=== PATIENT | female | born 1995 | race Caucasian/White ===

== ENCOUNTER 2019-04-07 23:03 | Emergency (ER) | payer MEDICAID ==
[~2019-04-07 23:03] MED LIST: HYDR-3455 PO; KETO10TA PO; LEVO500T2 PO
--- NOTE | 2019-04-07 23:16 | NUR ---
pt reported to registration she was going to [facility]. left from waiting room
[2019-04-07 23:17] LABS: BILIRUBIN,URINE NEGATIVE (NEGATIVE); CLARITY,URINE CLEAR; COLOR,URINE YELLOW; GLUCOSE, URINE (UA) NEGATIVE (NEGATIVE); KETONES,URINE NEGATIVE (NEGATIVE); LEUKOCYTE ESTERASE ,URINE NEGATIVE (NEGATIVE); NITRITE,URINE NEGATIVE (NEGATIVE); PROTEIN,URINE NEGATIVE (NEGATIVE)
--- NOTE | 2019-04-07 23:20 | NUR ---
ppd notified of pt leaving prior to assessment. after suicidial statement.
[2019-04-07 23:29] LABS: BENZODIAZEPINES SCREEN URINE POSITIVE (NEGATIVE); CANNABINOID SCREEN, URINE POSITIVE (NEGATIVE)
[2019-04-07 23:30] LABS: AMPHETAMINE SCREEN, URINE NEGATIVE (NEGATIVE); BARBITURATE SCREEN URINE NEGATIVE (NEGATIVE); COCAINE SCREEN URINE NEGATIVE (NEGATIVE); METHADONE STAT NEGATIVE (NEGATIVE); METHAMPHETAMINE SCREEN URINE S NEGATIVE (NEGATIVE); OPIATE SCREEN URINE NEGATIVE (NEGATIVE); OXYCODONE STAT NEGATIVE (NEGATIVE); PROPOXYPHENE STAT NEGATIVE (NEGATIVE); TRICYCLIC ANTIDEPRESSANTS SCRE POSITIVE (NEGATIVE)
--- NOTE | 2019-04-07 23:30 | NUR ---
ppd officer barrett here, informed of pt elopement from waiting room.
[2019-04-07 23:31] LABS: BACTERIA,URINE MODERATE /HPF; WBC,URINE 0-2 /HPF
== END 2019-04-07 23:17 | disposition left against medical advice (07) ==
LOC: EDUNIT# 23:03 → ER 23:06
DX: R45.851 Suicidal ideations (principal)
CPT/HCPCS: 80306; 81000; 99282

== ENCOUNTER 2019-04-23 20:51 | Emergency (ER) | payer MEDICAID ==
[~2019-04-23] VITALS: Ht 165.1 cm; Wt 95.4 kg
--- NOTE | 2019-04-23 21:26 | Diagnostic Imaging Report ---
INDICATION: Rolled right ankle a couple of weeks ago without improvement. FINDINGS: 3 views of the right ankle demonstrate soft tissue swelling. No joint effusion is present. There is a well-corticated osteophyte or old avulsion fracture off of the lateral malleolus. IMPRESSION: There is an osteophyte or old avulsion fracture off of the lateral malleolus. Soft tissue swelling is present. Dictated by: Dictated on workstation # [id number]
--- NOTE | 2019-04-23 21:37 | ED Lower Extremity ---
General Chief Complaint: Lower Extremity Stated Complaint: POSS RIGHT ANKLE INJ/FELL Nursing Triage Note: PT. REPORTED SHE HAD HURT HER ANKLE A COUPLE OF WEEKS AGO BUT FELL ON SOME STAIRS AND TWISTED IT AGAIN. RIGHT ANKLE IS SWOLLEN. Nursing Sepsis Screen: No Definite Risk Source: patient History of Present Illness Date Seen by Provider: Apr 23, 2019 Time Seen by Provider: 21:36 Initial Comments 24-year-old female presenting with complaints of right ankle pain and swelling. She states that she had injured her ankle a few weeks ago but it got better. Yesterday she had twisted her ankle and fell on some stairs. Then today when she was work it just kept getting more painful and swollen. She works the register at a [employer] She was unable to finish her shift and came to the emergency department to be evaluated. She denies any numbness or tingling in her foot. She did not hit her head when she fell and injured it yesterday. She is still able to bear some weight on her foot but has to limp Allergies and Home Medications Allergies Coded Allergies: meperidine (Verified Allergy, Severe, RASH/BREATHING, 12/31/14) Home Medications Hydrocodone/Acetaminophen 1 Each Tablet, 1-2 EACH PO PRN Prescribed by: YOHANA RIGGS on 01/01/15 1038 Hydrocodone/Acetaminophen 1 Each Tablet, 1 TAB PO Q8H PRN for PAIN-SEVERE (8-10) Prescribed by: WILNER PEARL on 04/23/19 2220 Ibuprofen 800 Mg Tablet, 800 MG PO Q8H PRN for PAIN Prescribed by: WILNER PEARL on 04/23/19 2219 Ketorolac Tromethamine 10 Mg Tablet, 10 MG PO Q6H Prescribed by: WILFRED ARMSTRONG on 01/06/15 031 Levofloxacin 500 Mg Tablet, 500 MG PO DAILY Prescribed by: WILFRED ARMSTRONG on 01/06/15311 Patient Home Medication List Home Medication List Reviewed: Yes Review of Systems Constitutional: No chills, No fever EENTM: no symptoms reported Respiratory: no symptoms reported Cardiovascular: no symptoms reported Gastrointestinal: no symptoms reported Genitourinary: no symptoms reported Musculoskeletal: see HPI Skin: see HPI Psychiatric/Neurological: See HPI Past Qvcqdpm-Rthcur-Exrpyf Hx Past Med/Social Hx: Reviewed Nursing Past Med/Soc Hx Patient Social History Recent Foreign Travel: No Contact w/Someone Who Travel: No Recent Infectious Disease Expo: No Recent Hopitalizations: No Physical Abuse: No Sexual Abuse: No Mistreated: No Fear: No Seasonal Allergies Seasonal Allergies: No Past Medical History Surgeries: Yes (METAL PLATE AND SCREWS IN R ARM AGE 7; HARDWARE REMOVAL AGE 15) Gallbladder, Orthopedic Respiratory: No Cardiac: No Neurological: No Reproductive Disorders: No Female Reproductive Disorders: Denies Sexually Transmitted Disease: No HIV/AIDS: No Gastrointestinal: Yes Gastroesophageal Reflux, Gall Bladder Disease Musculoskeletal: Yes Fractures Endocrine: No Loss of Vision: Denies Hearing Impairment: Denies Cancer: No Psychosocial: No Integumentary: No Blood Disorders: No Adverse Reaction/Blood Tranf: No Physical Exam Vital Signs Vital Signs - First Documented 04/23/19 04/23/19 21:04 22:21 Temp 36.1 Pulse 87 Resp 20 B/P (MAP) 132/72 (92) Pulse Ox 100 O2 Delivery Room Air Capillary Refill : Less Than 3 Seconds Height, Weight, BMI Height: 5'7.00" Weight: 248lbs. oz. 112.205510ck; 34.00 BMI Method: General Appearance: WD/WN, mild distress HEENT: PERRL/EOMI, pharynx normal Neck: non-tender, full range of motion, supple, normal inspection Cardiovascular: normal peripheral pulses, regular rate, rhythm Respiratory: chest non-tender, lungs clear, normal breath sounds Ankles: left ankle non-tender, left ankle normal inspection, left ankle normal range of motion, left ankle no evidence of injury; right ankle limited range of motion (due to pain), right ankle pain, right ankle soft tissue tenderness, right ankle swelling Feet: right foot pain, right foot soft tissue tenderness, right foot swelling Neurologic/Tendon: normal sensation, normal motor functions, normal tendon functions Neurologic/Psychiatric: trimmer machine II-XII nml as tested, no motor/sensory deficits, alert, normal mood/affect, oriented x 3 Skin: normal color, warm/dry Progress/Results/Core Measures Results/Orders My Orders Orders - WILNER PEARL MD Ankle 3 View Right (04/23/19 20:56) Ice: Apply To Affected Area (04/23/19 21:10) Rx-Hydrocodone/Apap 5-325 Mg (Rx-Vicodin (04/23/19 22:15) Crutches (04/23/19 22:09) Ed Ortho/Other Supplies Order (04/23/19 22:09) Vital Signs/I&O 04/23/19 04/23/19 21:04 22:21 Temp 36.1 36.4 Pulse 87 88 Resp 20 20 B/P (MAP) 132/72 (92) 130/68 Pulse Ox 100 O2 Delivery Room Air Room Air Blood Pressure Mean: 92 Progress Progress Note : Progress Note X-rays did not demonstrate any acute fracture or dislocation. She has some soft tissue swelling. There is a well-corticated Sargent old avulsion fracture of the lateral malleolus on her fibula Will treat with a walking boot and crutches. Counseled to bear weight as tolerated. Ice and elevate for pain and swelling. Ibuprofen for pain and swelling. Hydrocodone for severe pain. Counseled to check back with Dr. Persaud or Bipin Kay. Diagnostic Imaging Diagonstic Imaging: Xray Plain Films/CT/US/NM/MRI: ankle Comments NAME: TEMO ALMAZAN [facility] REC#: [id number] PT STATUS: REG ER : 1995 PHYSICIAN: WILNER PEARL MD ADMIT DATE: 04/23/19/ER FS Draft Date of Exam:04/23/19 ANKLE 3 VIEW RIGHT INDICATION: Rolled right ankle a couple of weeks ago without improvement. FINDINGS: 3 views of the right ankle demonstrate soft tissue swelling. No joint effusion is present. There is a well-corticated osteophyte or old avulsion fracture off of the lateral malleolus. IMPRESSION: There is an osteophyte or old avulsion fracture off of the lateral malleolus. Soft tissue swelling is present. Dictated on workstation # [id number] Dict: 04/23/192112 Trans: 04/23/192124 HARRY [id number] Interpreted by: ROSALIA DINERO MD Electronically signed by: Departure Impression Primary Impression: Right ankle sprain Qualified Codes: S93.401A - Sprain of unspecified ligament of right ankle, initial encounter Additional Impression: Acute right ankle pain Disposition: 01 HOME, SELF-CARE Condition: Stable Departure-Patient Inst. Decision time for Depature: 22:13 Referrals: NO,LOCAL PHYSICIAN (PCP) Primary Care Physician SELF,TIFFANY MD Patient Instructions: Ankle Sprain (DC), How to Use Crutches Add. Discharge Instructions: Wear the boot for support and to let your ankle rest and heal. Weight bearing as you tolerate with the boot and using crutches Check back with Dr. Persaud or with Bipin Kay in clinic for continued pain or if not improving in the next 5-7 days. Bipin Kay could be reached for making an appointment by calling [phone]. Try to elevate your ankle every few hours to help with pain and swelling. May continue to use ice for pain and swelling. Ibuprofen 800 mg every 8 hours as needed for pain and swelling All discharge instructions reviewed with patient and/or family. Voiced understanding. Scripts Hydrocodone/Acetaminophen (Hydrocodone/Acetaminophen 5 MG/325 MG TAB) 1 Each Tablet 1 TAB PO Q8H PRN for PAIN-SEVERE (8-10) MDD 10 TABS for 2 Days, #6 TAB 0 Refills Prov: WILNER PEARL MD 04/23/19 Ibuprofen (Ibuprofen) 800 Mg Tablet 800 MG PO Q8H PRN for PAIN for 10 Days, #30 TAB 0 Refills Prov: WILNER PEARL MD 04/23/19 Work/School Note: Work Release Form Date Seen in the Emergency Department: Apr 23, 2019 Return to Work: Apr 24, 2019 Other Restrictions Listed Below: Use boot and crutches for next week. Elevate R leg for 15 min every 3 hrs WILNER PEARL MD Apr 23, 2019 21:37
[2019-04-23] MEDS ORDERED: RX-HYDROCODONE/APAP 5/325 MG #4 TAB PK PO PRN (22:15)
[2019-04-23] MEDS ORDERED: IBUP-1780 PO (22:19)
[2019-04-23] MEDS ORDERED: HYDR-4226 PO (22:19)
[2019-04-23 22:21] VITALS: BP 130/68
== END 2019-04-23 22:23 | disposition home or self-care (01) ==
LOC: EDUNIT# 20:51 → ER FS 20:52
DX: S93.401A Sprain of unspecified ligament of right ankle, initial encounter (principal); Z88.5 Allergy status to narcotic agent; W10.9XXA Fall (on) (from) unspecified stairs and steps, initial encounter
CPT/HCPCS: 73610

== ENCOUNTER 2020-04-07 18:38 | Emergency (ER) | payer MEDICAID ==
[~2020-04-07] VITALS: Ht 167.7 cm; Wt 95.4 kg
[~2020-04-07 18:38] MED LIST changes: +HYDR-4226 PO; +IBUP-1780 PO
[2020-04-07] MEDS ORDERED: HYDROcodone/APAP 5 MG/325 MG (LORTAB) TAB PO ONE (19:30)
--- NOTE | 2020-04-07 19:50 | Diagnostic Imaging Report ---
INDICATION: Right wrist pain injury. COMPARISON: None FINDINGS: 3 views of the right wrist demonstrate no acute fracture or dislocation. There has been prior removal of orthopedic plate from the visualized distal radius. Articular surfaces are age-appropriate. There is no radiopaque foreign body or osseous lesion. IMPRESSION: No fracture or dislocation. Dictated by: Dictated on workstation # [id number]
--- NOTE | 2020-04-07 19:51 | Diagnostic Imaging Report ---
INDICATION: Right hand injury. COMPARISON: None FINDINGS: 3 views of the right hand demonstrate no acute fracture or dislocation. Articular surfaces are age-appropriate. There is no unexpected radiopaque foreign body. IMPRESSION: No fracture or dislocation. Dictated by: Dictated on workstation # [id number]
--- NOTE | 2020-04-07 20:17 | ED General ---
General Chief Complaint: Upper Extremity Stated Complaint: R HAND INJ Source of Information: Patient Exam Limitations: No Limitations History of Present Illness Date Seen by Provider: Apr 07, 2020 Time Seen by Provider: 19:20 Initial Comments This 25-year-old young lady presents to the emergency room with right hand pain after shutting her hand in a sliding van door shortly before arrival. She also complains of congestion, mild cough, and a fever yesterday. [place]. Allergies and Home Medications Allergies Coded Allergies: meperidine (Verified Allergy, Severe, RASH/BREATHING, 12/31/14) Home Medications Hydrocodone/Acetaminophen 1 Each Tablet, 1-2 EACH PO PRN Prescribed by: YOHANA RIGGS on 01/01/15 1038 Hydrocodone/Acetaminophen 1 Each Tablet, 1 TAB PO Q8H PRN for PAIN-SEVERE (8-10) Prescribed by: WILNER PEARL on 04/23/19 2220 Ibuprofen 800 Mg Tablet, 800 MG PO Q8H PRN for PAIN Prescribed by: WILNER PEARL on 04/23/19 2219 Ketorolac Tromethamine 10 Mg Tablet, 10 MG PO Q6H Prescribed by: WILFRED ARMSTRONG on 01/06/15 031 Levofloxacin 500 Mg Tablet, 500 MG PO DAILY Prescribed by: WILFRED ARMSTRONG on 01/06/15311 Patient Home Medication List Home Medication List Reviewed: Yes Review of Systems Review of Systems Constitutional: see HPI EENTM: see HPI Respiratory: see HPI Cardiovascular: no symptoms reported Gastrointestinal: no symptoms reported Genitourinary: no symptoms reported : No Musculoskeletal: see HPI Skin: other (Abrasion on right hand) Psychiatric/Neurological: No Symptoms Reported; Denies Paresthesia, Denies Seizure, Denies Tingling Hematologic/Lymphatic: No Symptoms Reported Immunological/Allergic: no symptoms reported Past Tiegzqo-Nkzacx-Ypzdww Hx Past Med/Social Hx: Reviewed Nursing Past Med/Soc Hx Patient Social History Recent Hopitalizations: No Seasonal Allergies Seasonal Allergies: No Past Medical History Surgeries: Yes (METAL PLATE AND SCREWS IN R ARM AGE 7; HARDWARE REMOVAL AGE 15) Gallbladder, Orthopedic Respiratory: No Cardiac: No Neurological: No Reproductive Disorders: No Female Reproductive Disorders: Denies Sexually Transmitted Disease: No HIV/AIDS: No Gastrointestinal: Yes Gastroesophageal Reflux, Gall Bladder Disease Musculoskeletal: Yes Fractures Endocrine: No Loss of Vision: Denies Hearing Impairment: Denies Cancer: No Psychosocial: No Integumentary: No Blood Disorders: No Adverse Reaction/Blood Tranf: No Physical Exam Vital Signs Vital Signs - First Documented 04/07/20 19:05 Temp 36.1 Pulse 65 Resp 18 B/P (MAP) 111/77 (88) Pulse Ox 99 O2 Delivery Room Air Capillary Refill : Height, Weight, BMI Height: 5'7.00" Weight: 248lbs. oz. 112.735675ze; 34.00 BMI Method: General Appearance: WD/WN, Mild Distress HEENT: PERRL/EOMI, TMs Normal, Normal ENT Inspection, Pharynx Normal Neck: Normal Inspection Respiratory: Lungs Clear, Normal Breath Sounds, No Accessory Muscle Use Cardiovascular: Regular Rate, Rhythm, No Edema, No Murmur Gastrointestinal: Non Tender, Soft Extremity: Other (Mild swelling of the right hand with a superficial abrasion on the dorsum. Generalized tenderness over the metacarpal bones. Sensation, capillary refill, and radial pulse intact. Mild tenderness in the wrist as well.) Neurologic/Psychiatric: Alert, Oriented x3, No Motor/Sensory Deficits, Normal Mood/Affect, health physicist II-XII Norm as Tested Skin: Normal Color, Warm/Dry, Other (Superficial abrasion on the right hand) Progress/Results/Core Measures Suspected Sepsis SIRS Temperature: Pulse: Respiratory Rate: Blood Pressure / Mean: Results/Orders Lab Results Laboratory Tests Test 04/07/20 19:24 Range/Units Coronavirus 2019 ([facility]) Negative Negative Micro Results Microbiology 04/07/20 Influenza Types A,B Antigen ([facility]) - Final, Complete My Orders Orders - KERI BHAT MD Hydrocodone/Apap 5/325 Tablet (Lortab 5 (04/07/20 19:30) Wrist, Right, 3 Views Or More (04/07/20 19:26) Hand, Right, 3 Views (04/07/20 19:26) Influenza A And B Antigens (04/07/20 19:27) Covid 19 Inhouse Test (04/07/20 19:27) Medications Given in ED Current Medications Medications Dose Ordered Sig/Riana Route Start Time Stop Time Status Last Admin Dose Admin Acetaminophen/ Hydrocodone Bitart 1 ea ONCE ONCE PO 04/07/20 19:30 04/07/20 19:31 DC 04/07/20 19:30 1 EA Vital Signs/I&O 04/07/20 04/07/20 19:05 20:35 Temp 36.1 Pulse 65 67 Resp 18 16 B/P (MAP) 111/77 (88) 116/79 Pulse Ox 99 99 O2 Delivery Room Air Capillary Refill : Progress Note : Progress Note Rapid flu and Covid tests were negative. X-rays of the hand and wrist were also negative. Patient was given 1 hydrocodone tablet for her pain. Diagnostic Imaging Diagonstic Imaging: Xray Plain Films/CT/US/NM/MRI: hand (And wrist) Comments Wrist and hand x-rays reviewed by me and report reviewed. See reports below: NAME: TEMO ALMAZAN [facility] REC#: [id number] PT STATUS: DEP ER : 1995 PHYSICIAN: KERI BHAT MD ADMIT DATE: 04/07/20/ER Signed Date of Exam:04/07/20 WRIST, RIGHT, 3 VIEWS OR MORE INDICATION: Right wrist pain injury. COMPARISON: None FINDINGS: 3 views of the right wrist demonstrate no acute fracture or dislocation. There has been prior removal of orthopedic plate from the visualized distal radius. Articular surfaces are age-appropriate. There is no radiopaque foreign body or osseous lesion. IMPRESSION: No fracture or dislocation. Dictated by: Dictated on workstation # [id number] Dict: 04/07/201947 Trans: 04/07/202113 [facility] [phone] Interpreted by: ROBBIN SEGURA Electronically signed by: ROBBIN SEGURA 04/07/202113 NAME: TEMO ALMAZAN [facility] REC#: [id number] PT STATUS: DEP ER : 1995 PHYSICIAN: KERI BHAT MD ADMIT DATE: 04/07/20/ER Signed Date of Exam:04/07/20 HAND, RIGHT, 3 VIEWS INDICATION: Right hand injury. COMPARISON: None FINDINGS: 3 views of the right hand demonstrate no acute fracture or dislocation. Articular surfaces are age-appropriate. There is no unexpected radiopaque foreign body. IMPRESSION: No fracture or dislocation. Dictated by: Dictated on workstation # [id number] Dict: 04/07/201948 Trans: 04/07/202113 [facility] [phone] Interpreted by: ROBBIN SEGURA Electronically signed by: ROBBIN SEGURA 04/07/202113 Departure Impression Primary Impression: Contusion of hand Qualified Codes: S60.221A - Contusion of right hand, initial encounter Additional Impression: Flu-like symptoms Disposition: 01 HOME, SELF-CARE Condition: Improved Departure-Patient Inst. Referrals: SELFTIFFANY MD (PCP/Family) Primary Care Physician Patient Instructions: Contusion (DC) Add. Discharge Instructions: Stay well-hydrated with plenty of nonalcoholic clear liquids. Your x-rays were negative for fractures or dislocations. For pain you may use ibuprofen up to 600 mg every 6 hours as needed and/or Tylenol (acetaminophen) up to 1000 mg every 6 hours as needed. Elevate your hand and ice in 20-minute intervals to reduce pain and swelling over the next 24 hours. Do not return to public life or work until you are free of fever for at least 24 hours without the use of Tylenol or ibuprofen. Call with questions or concerns. Return to the emergency room with worsening symptoms. All discharge instructions reviewed with patient and/or family. Voiced understanding. Work/School Note: Work Release Form Return to Work: Apr 09, 2020 Restrictions: Return-No Fever (24hrs) Other Restrictions Listed Below: Return when no fever (100.4) for 24 hrs without Tylenol or ibuprofen. KERI BHAT MD Apr 07, 2020 20:17
[2020-04-07 20:35] VITALS: BP 116/79
== END 2020-04-07 20:39 | disposition home or self-care (01) ==
LOC: EDUNIT# 18:38 → ER 18:40
DX: S60.221A Contusion of right hand, initial encounter (principal); J11.1 Influenza due to unidentified influenza virus with other respiratory manifestations; Z20.822 Contact with and (suspected) exposure to COVID-19; Z88.5 Allergy status to narcotic agent; W23.0XXA Caught, crushed, jammed, or pinched between moving objects, initial encounter
CPT/HCPCS: 73110; 73130; 87804; 99283; U0002; 87635